=== PATIENT | male | born 1945 | race American Indian/Alaskan Native ===

== ENCOUNTER 2016-09-01 12:42 | Outpatient (CLI) | payer MEDICARE ==
[2016-09-01 13:11] LABS: Hematocrit 37.1 % (35.5-45.6); Hemoglobin 11.9 gm/dl (11.8-15.2); Mean Corpuscular HGB Conc 32 % (32-34); Mean Corpuscular Hemoglobin 26 pg (28-32); Mean Corpuscular Volume 82 fl (84-94); Platelet Count 136 K/mm3 (140-440); Red Blood Count 4.54 M/mm3 (3.65-5.03); Red Cell Distribution Width 15.4 % (13.2-15.2); White Blood Count 9.9 K/mm3 (4.5-11.0)
[2016-09-01 13:44] LABS: BUN/Creatinine Ratio 16.57; Calcium 8.5 mg/dL (8.4-10.2); Chloride 103.2 mmol/L (98-107); Potassium 4.2 mmol/L (3.6-5.0)
--- NOTE | 2016-09-02 09:10 | Cat Scan Report ---
CT CHEST WITHOUT CONTRAST: HISTORY: Right upper lobe nodule, lung mass. TECHNIQUE: Helical CT with sagittal and coronal reformatted images. FINDINGS: No comparison at this facility. Noncontrast CT demonstrates a 2.5 x 2.8 x 3.5 cm wedge shape opacity in the lateral right upper lobe. There appears to be volume loss in this area. Overall, this has the appearance of scarring. I cannot entirely exclude a neoplastic process but is thought less likely. There are 2 healing rib fractures adjacent to this opacity in the right upper lobe involving right ribs 2 and 3. The remainder of the lungs are clear. No significant parenchymal lung disease is identified. Surgical changes are suspected at the right hilum. May represent partial right pneumonectomy, correlate with history. Heart size is normal. No pericardial effusion. The mediastinal vessels are grossly normal. Normal thyroid gland. Limited images of the superior abdomen demonstrate an ill-defined 2.8 cm hypodense liver lesion. This could represent a cavernous hemangioma however other etiologies are not excluded. Also scattered nonobstructing bilateral renal stones. IMPRESSION: Focal opacity in the lateral right upper lobe as outlined above. I suspect this represents scarring although I cannot entirely exclude other etiologies. PET CT may prove useful if needed. Ill-defined liver lesion. Consider further evaluation with triple phase liver scan with contrast.
== END 2016-09-01 12:43 | disposition home or self-care (01) ==
LOC: CT 12:42
PROVIDERS: ATTEND Internal Medicine
DX: R91.1 Solitary pulmonary nodule (principal); N20.0 Calculus of kidney; S22.31XD Fracture of one rib, right side, subsequent encounter for fracture with routine healing; K76.89 Other specified diseases of liver; X58.XXXD Exposure to other specified factors, subsequent encounter
CPT/HCPCS: 36415; 71250; 80048; 80061; 84439; 84443; 85027

== ENCOUNTER 2017-09-25 08:49 | Emergency (ER) | payer MEDICARE ==
[~2017-09-25 08:49] MED LIST: ADRENALIN ONE
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
== END 2017-09-25 11:32 ==
LOC: ED 08:49
DX: I46.9 Cardiac arrest, cause unspecified (principal); I12.0 Hypertensive chronic kidney disease with stage 5 chronic kidney disease or end stage renal disease; N18.6 End stage renal disease; F17.200 Nicotine dependence, unspecified, uncomplicated; Z99.2 Dependence on renal dialysis; Z86.19 Personal history of other infectious and parasitic diseases; Z88.8 Allergy status to other drugs, medicaments and biological substances
CPT/HCPCS: 92950; 99285; J0171